=== PATIENT | male | born 1935 ===

== ENCOUNTER 2019-08-02 15:14 | Emergency (ER) | payer OTHER ==
[~2019-08-02] VITALS: Ht 162.6 cm; Wt 71.2 kg
[2019-08-02] MEDS ORDERED: FINASTERIDE5 MG (15:29)
[2019-08-02] MEDS ORDERED: ARICEPT10 MG (15:29)
[2019-08-02] MEDS ORDERED: PROTONIX40 M1 (15:29)
[2019-08-02] MEDS ORDERED: TAMS0.4C PO (15:30)
[2019-08-02] MEDS ORDERED: TRAZODONE HCL50 MG (15:30)
[2019-08-02] MEDS ORDERED: LISINOPRIL10 MG PO (15:30)
[2019-08-02] MEDS ORDERED: ATORVASTATIN CA10 MG PO (15:30)
== END 2019-08-02 22:17 | disposition home or self-care (01) ==
LOC: ER 15:14
DX: S00.83XA Contusion of other part of head, initial encounter (principal); S00.33XA Contusion of nose, initial encounter; W18.39XA Other fall on same level, initial encounter; Y93.89 Activity, other specified; Y92.89 Other specified places as the place of occurrence of the external cause; Y99.8 Other external cause status